=== PATIENT | female | born 1990 | race American Indian/Alaskan Native ===

== ENCOUNTER 2018-04-21 23:12 | Emergency (ER) | payer OTHER ==
[2018-04-21 23:19] VITALS: BP 119/70
[2018-04-22] MEDS ORDERED: CLEOCIN PO ONE (00:09)
[2018-04-22] MEDS ORDERED: IBUPROFEN PO ONE (00:09)
[2018-04-22] MEDS ORDERED: DECADRON IM ONE (00:09)
--- NOTE | 2018-04-22 00:12 | Emergency Department Report ---
ED ENT HPI - General Chief complaint: Sore Throat Stated complaint: SWOLLEN TONSILS/CAN'T SWALLOW/CHILLS Time Seen by Provider: 04/21/18 23:59 Source: patient Mode of arrival: Ambulatory Limitations: No Limitations - History of Present Illness MD complaint: sore throat Onset/Timin -: Gradual, days(s) Severity: moderate Severity scale (0 -10): 5 Quality: burning, aching, crushing, sharp, dull, constant, other Consistency: constant Improves with: none Worsens with: swallowing Associated Symptoms: gum swelling, toothache - Related Data Previous Rx's Medication Instructions Recorded Last Taken Type Benzocaine/Menth/Cetylpyrd 1 each MM Q2H PRN #2 packet 04/22/18 Unknown Rx [Cepacol X Strength] Clindamycin [Clindamycin CAP] 300 mg PO Q8H 10 Days #30 cap 04/22/18 Unknown Rx Ibuprofen 800 mg PO TID PRN #30 tablet 04/22/18 Unknown Rx Allergies Allergy/AdvReac Type Severity Reaction Status Date / Time Penicillins Allergy Swelling Verified 04/21/18 23:14 ED Dental HPI - General Chief complaint: Sore Throat Stated complaint: SWOLLEN TONSILS/CAN'T SWALLOW/CHILLS Time Seen by Provider: 04/21/18 23:59 Source: patient Mode of arrival: Ambulatory Limitations: No Limitations - Related Data Previous Rx's Medication Instructions Recorded Last Taken Type Benzocaine/Menth/Cetylpyrd 1 each MM Q2H PRN #2 packet 04/22/18 Unknown Rx [Cepacol X Strength] Clindamycin [Clindamycin CAP] 300 mg PO Q8H 10 Days #30 cap 04/22/18 Unknown Rx Ibuprofen 800 mg PO TID PRN #30 tablet 04/22/18 Unknown Rx Allergies Allergy/AdvReac Type Severity Reaction Status Date / Time Penicillins Allergy Swelling Verified 04/21/18 23:14 ED Review of Systems ROS: Stated complaint: SWOLLEN TONSILS/CAN'T SWALLOW/CHILLS Other details as noted in HPI Constitutional: denies: chills, fever Eyes: denies: eye pain, eye discharge, vision change ENT: throat pain. denies: ear pain Respiratory: denies: cough, shortness of breath, wheezing Cardiovascular: denies: chest pain, palpitations Endocrine: no symptoms reported Gastrointestinal: denies: abdominal pain, nausea, diarrhea Genitourinary: denies: urgency, dysuria, discharge Musculoskeletal: denies: back pain, joint swelling, arthralgia Skin: denies: rash, lesions Neurological: denies: headache, weakness, paresthesias Psychiatric: denies: anxiety, depression Hematological/Lymphatic: denies: easy bleeding, easy bruising ED Past Medical Hx - Past Medical History Previous Medical History?: Yes Additional medical history: murmur - Surgical History Past Surgical History?: Yes Additional Surgical History: csection x1 - Social History Smoking Status: Never Smoker Substance Use Type: Alcohol - Medications Home Medications: Home Medications Medication Instructions Recorded Confirmed Last Taken Type Benzocaine/Menth/Cetylpyrd 1 each MM Q2H PRN #2 packet 04/22/18 Unknown Rx [Cepacol X Strength] Clindamycin [Clindamycin CAP] 300 mg PO Q8H 10 Days #30 cap 04/22/18 Unknown Rx Ibuprofen 800 mg PO TID PRN #30 tablet 04/22/18 Unknown Rx ED Physical Exam - General Limitations: No Limitations General appearance: alert, in no apparent distress - Head Head exam: Present: normocephalic, normal inspection - Eye Eye exam: Present: normal appearance, PERRL, EOMI Pupils: Present: normal accommodation, irregular - ENT ENT exam: Present: mucous membranes moist, TM's normal bilaterally, normal external ear exam - Expanded ENT Exam Expanded Ear exam: Present: normal external inspection Mouth exam: Absent: trismus Throat exam: Positive: tonsillar erythema, tonsillomegaly, tonsillar exudate, other (uvula midline no stridor no lesion, no peritonsilar abscess ). Negative: R peritonsillar mass, L peritonsillar mass - Neck Neck exam: Present: normal inspection, full ROM, lymphadenopathy. Absent: meningismus, thyromegaly - Expanded Neck Exam Expanded Neck exam: Absent: midline deformity - Respiratory Respiratory exam: Present: normal lung sounds bilaterally. Absent: respiratory distress, wheezes, stridor, chest wall tenderness - Cardiovascular Cardiovascular Exam: Present: regular rate, normal rhythm, normal heart sounds. Absent: systolic murmur, diastolic murmur, rubs, gallop - GI/Abdominal GI/Abdominal exam: Present: soft, normal bowel sounds. Absent: tenderness, rebound, mass, bruit, hernia - Rectal Rectal exam: Present: deferred - Extremities Exam Extremities exam: Present: normal inspection - Back Exam Back exam: Present: normal inspection, full ROM. Absent: tenderness, CVA tenderness (R), CVA tenderness (L), muscle spasm, rash noted - Neurological Exam Neurological exam: Present: alert, oriented X3, CN II-XII intact, normal gait, motor sensory deficit, reflexes normal - Psychiatric Psychiatric exam: Present: normal affect, normal mood - Skin Skin exam: Present: warm, dry, intact, normal color. Absent: rash ED Course Vital Signs 04/21/18 23:16 Temperature 98.3 F Pulse Rate 95 H Respiratory 18 Rate Blood Pressure 119/70 O2 Sat by Pulse 99 Oximetry ED Medical Decision Making - Radiology Data Radiology results: pending - Medical Decision Making this is pharyngitis plan: decadron, cindamycin pt is pcn allergic , will dc to home with clindamycin, ibuprofen, cepachol lozenges pt will follouw up iwht pcp in 2-3 day and or return to ed if symptoms worsen. Critical care attestation.: If time is entered above; I have spent that time in minutes in the direct care of this critically ill patient, excluding procedure time. ED Disposition Clinical Impression: Pharyngitis Qualifiers: Pharyngitis/tonsillitis etiology: streptococcus Qualified Code(s): J02.0 - Streptococcal pharyngitis Disposition: DC-01 TO HOME OR SELFCARE Is pt being admited?: No Does the pt Need Aspirin: No Condition: Stable Instructions: Pharyngitis (ED) Prescriptions: Benzocaine/Menth/Cetylpyrd [Cepacol X Strength] 1 each MM Q2H PRN #2 packet PRN Reason: throat pain Clindamycin [Clindamycin CAP] 300 mg PO Q8H 10 Days #30 cap Ibuprofen 800 mg PO TID PRN #30 tablet PRN Reason: pain fever Referrals: BLAIR IBARRA MD [Primary Care Provider] - 3-5 Days Forms: Work/School Release Form(ED) Time of Disposition: 00:35
== END 2018-04-22 00:45 | disposition home or self-care (01) ==
LOC: ED 23:12
DX: J02.0 Streptococcal pharyngitis (principal); Z88.0 Allergy status to penicillin
CPT/HCPCS: 96372; 99282; J1100